=== PATIENT | female | born 2000 | race Hispanic/Latino ===

== ENCOUNTER 2024-04-06 00:11 | Emergency (ER) | payer BC | END 2024-04-06 00:53 | LOC: ERS 00:11 → EEVIPCON 00:11 → ERS 00:53 | DX: Z02.89 Encounter for other administrative examinations (principal); S61.304A Unspecified open wound of right ring finger with damage to nail, initial encounter; X58.XXXA Exposure to other specified factors, initial encounter | CPT/HCPCS: 99282 ==